=== PATIENT | female | born 1945 | race Caucasian/White ===

== ENCOUNTER 2017-07-20 06:54 | Day surgery (SDC) | payer MEDICARE, BC ==
[2017-07-20] MEDS ORDERED: Lidocaine 1% with EPINEPHrine 1:100,000 50 ML MDV ONE (06:57)
[2017-07-20] MEDS ORDERED: Bupivacaine 0.5% 50 ML MDV ONE (06:57)
[2017-07-20] MEDS ORDERED: Midazolam 1 MG/ML 2 ML SDV ONE (07:04)
[2017-07-20] MEDS ORDERED: Propofol 200 MG/20 ML SDV ONE (07:04)
[2017-07-20] MEDS ORDERED: fentaNYL 100 MCG/2 ML SDV ONE (07:04)
[2017-07-20] MEDS ORDERED: Sodium Chloride 0.9% 1,000 ML IV SCH (07:30)
[2017-07-20] MEDS ORDERED: ceFAZolin 2 GM in Premix Bag 1 BAG IV ONE (08:20)
[2017-07-20 10:01] VITALS: BP 151/76
--- NOTE | 2017-07-20 10:16 | OR ---
DATE OF PROCEDURE: 07/20/2017 PROCEDURE: Excision of lipoma, left flank. COMPLICATIONS: None. [employer]: None. ANESTHESIA: MAC/local. INDICATIONS: A pleasant female with a large lipoma requiring excision. FINDINGS: Large lipoma, left flank. PROCEDURE IN DETAIL: The patient was placed in prone position. The area was prepped and draped. the area. Lipoma was readily identified. This was anesthetized with 1% lidocaine mixed with Marcaine. A transverse incision was made. This was carried down with electrocautery to the lipoma itself. This was grasped and excised. A finger sweep maneuver was used to verify that there was no other additional lipoma remnant. This was then irrigated, closed with 3-0 Vicryl and 4-0 Vicryl and Dermabond. The patient tolerated the procedure well. Ajit Tesfaye MD /[id number]
== END 2017-07-20 10:31 | disposition home or self-care (01) ==
LOC: JP.SDS 06:54
PROVIDERS: ATTEND Surgery
DX: D17.1 Benign lipomatous neoplasm of skin and subcutaneous tissue of trunk (principal); I10 Essential (primary) hypertension; K21.9 Gastro-esophageal reflux disease without esophagitis; G47.33 Obstructive sleep apnea (adult) (pediatric); E78.00 Pure hypercholesterolemia, unspecified; F41.9 Anxiety disorder, unspecified; Z98.51 Tubal ligation status; Z98.890 Other specified postprocedural states
CPT/HCPCS: 21931; 88304; J0690; J2250; J2704; J3010; J7040

== ENCOUNTER 2023-04-12 06:54 | Day surgery (SDC) | payer MEDICARE, BC ==
[2023-04-12] MEDS ORDERED: fentaNYL 50 MCG/ML SDV ONE (09:12)
[2023-04-12] MEDS ORDERED: Midazolam 1 MG/ML 2 ML SDV ONE (09:12)
[2023-04-12] MEDS ORDERED: Propofol 200 MG/20 ML SDV ONE (09:12)
[2023-04-12] MEDS: Lactated Ringers 1,000 ML IV SCH (10:30)
[2023-04-12 10:31] VITALS: BP 167/80; PULSE 70
== END 2023-04-12 10:51 | disposition home or self-care (01) ==
LOC: JP.SDS 06:54
PROVIDERS: ATTEND Student in an Organized Health Care Education/Training Program
DX: D12.5 Benign neoplasm of sigmoid colon (principal); D12.3 Benign neoplasm of transverse colon; K63.5 Polyp of colon; K57.30 Diverticulosis of large intestine without perforation or abscess without bleeding; E78.5 Hyperlipidemia, unspecified; I10 Essential (primary) hypertension; F32.A Depression, unspecified; I25.10 Atherosclerotic heart disease of native coronary artery without angina pectoris; Z80.0 Family history of malignant neoplasm of digestive organs
CPT/HCPCS: 45380; 45385; 88305; J2250; J2704; J3010; J7120